=== PATIENT | male | born 1955 | race Two or more races ===

== ENCOUNTER 2021-03-02 21:28 | Emergency (ER) | payer MEDICAID, OTHER ==
[~2021-03-02] VITALS: Ht 170.2 cm; Wt 81.6 kg
[2021-03-02 23:38] LABS: Basophils # (auto) 0 10 ^3/uL (0-0.2); Basophils % (auto) 0.2 % (0.0-2.0); Eosinophils # (auto) 0.1 10 ^3/uL (0-0.8); Eosinophils % (auto) 0.4 % (0.0-7.0); Hematocrit 43.1 % (41.0-53.0); Hemoglobin 14.9 g/dL (13.5-17.5); Lymphocytes # (auto) 1.6 10 ^3/uL (0.4-5.4); Lymphocytes % (auto) 9.2 % (10.0-50.0); Mean Corpuscular Hgb Conc. 34.5 g/dL (32.0-36.0); Mean Corpuscular Volume 89.9 fL (80.0-100.0); Monocytes % (auto) 5.5 % (0.0-12.0); Neutrophils # (auto) 14.9 10 ^3/uL (1.6-8.6); Neutrophils % (auto) 84.7 % (37.0-80.0); Nucleated Red Blood Cells % 0.2 %; Red Cell Distribution Width 12.7 % (11.8-14.3); White Blood Cell 17.6 10^3/uL (4.4-10.8)
[2021-03-02 23:42] LABS: Urine Bacteria NONE SEEN /hpf (None Seen); Urine Mucus FEW (None Seen); Urine WBC 1600 /hpf (0 - 3); Urine WBC Clumps PRESENT /hpf (None Seen)
[2021-03-02 23:53] LABS: Urine Blood 3+ /uL (Negative)
[2021-03-02 23:55] LABS: Albumin 3.8 g/dL (3.4-5.0); BUN/Creatinine Ratio 22.7; Calcium 8.9 mg/dL (8.5-10.1); Potassium 4.4 mmol/L (3.5-5.1)
[2021-03-02 23:58] LABS: Bilirubin, Total 0.3 mg/dL (0.2-1.0); Total Protein 7.1 g/dL (6.4-8.2)
[2021-03-03 04:37] VITALS: BP 130/57
== END 2021-03-03 04:48 | disposition home or self-care (01) ==
LOC: ER 21:28
DX: N39.0 Urinary tract infection, site not specified (principal); E11.9 Type 2 diabetes mellitus without complications; I10 Essential (primary) hypertension
CPT/HCPCS: 36415; 74176; 80053; 81001; 85025